=== PATIENT | female | born 1955 | race Two or more races ===

== ENCOUNTER 2023-12-17 17:07 | Inpatient (IN) | payer OTHER, MEDICAID ==
[~2023-12-17] VITALS: Ht 154.9 cm; Wt 72.3 kg
[2023-12-17] MEDS ORDERED: AMIODARONE HCL (50 MG/ ML) 3 ML VIAL IV ONE (17:13)
[2023-12-17] MEDS: AMIODARONE BOLUS KIT 100 ML IV ONE (17:15)
[2023-12-17] MEDS: DOPamine 1600MCG/ML D5W 250 ML IV ONE (17:26)
[2023-12-17] MEDS: dilTIAZem 25 MG/5 ML VIAL IV ONE (17:59)
[2023-12-17 18:02] LABS: Basophils # (auto) 0.1 10 ^3/uL (0-0.2); Eosinophils # (auto) 0.1 10 ^3/uL (0-0.8); Eosinophils % (auto) 1.4 % (0.0-7.0); Hematocrit 29.2 % (36.0-46.0); Hemoglobin 9.2 g/dL (12.2-16.2); White Blood Cell 7.7 10^3/uL (4.4-10.8)
[2023-12-17 18:04] LABS: Basophils % (auto) 0.9 % (0.0-2.0); Lymphocytes # (auto) 1.3 10 ^3/uL (0.4-5.4); Lymphocytes % (auto) 17.1 % (10.0-50.0); Mean Corpuscular Hgb Conc. 31.6 g/dL (32.0-36.0); Mean Corpuscular Volume 82.2 fL (80.0-100.0); Monocytes # (auto) 0.8 10 ^3/uL (0-1.3); Monocytes % (auto) 10.7 % (0.0-12.0); Neutrophils # (auto) 5.4 10 ^3/uL (1.6-8.6); Neutrophils % (auto) 69.9 % (37.0-80.0); Nucleated Red Blood Cells % 0.2 %; Platelet Count (auto) 116 10^3/uL (140-450); Red Blood Cells 3.55 10^6/uL (4.0-5.20)
[2023-12-17 18:23] LABS: Albumin 3.4 g/dL (3.2-4.8); Alkaline Phosphatase 474 U/L (46-116); Anion Gap 12 (5-15); Aspartate Aminotransferase 20 U/L (13-40); BUN/Creatinine Ratio 4.3 (10.0-20.0); Blood Urea Nitrogen 21 mg/dL (9-23); Calcium 7.9 mg/dL (8.7-10.4); Carbon Dioxide 21 mmol/L (20-30); Chloride 99 mmol/L (98-107); Glucose 113 mg/dL (74-106); Potassium 4.5 mmol/L (3.5-5.1); Sodium 132 mmol/L (136-145)
[2023-12-17 18:24] LABS: Bilirubin, Total 2.2 mg/dL (0.2-1.0); Total Protein 7.8 g/dL (5.7-8.2)
[2023-12-17 18:49] LABS: Red Cell Distribution Width 20.3 % (11.8-14.3)
[2023-12-17 18:50] LABS: Alanine Aminotransferase < 9 U/L (7-40)
[2023-12-17] MEDS ORDERED: dilTIAZem 125mg/125ml BAG KIT 125 ML IV ONE (19:15)
[2023-12-17 19:20] VITALS: PULSE 115; RESP 26; O2SAT 93
[2023-12-17 19:22] LABS: Lactic Acid w/Reflex 4.1 mmol/L (0.4-2.0)
[2023-12-17] MEDS: CALCIUM GLUC 1,000mg/50ml-NS 50 ML IV ONE (19:41)
[2023-12-17] MEDS: DOPamine 1600MCG/ML D5W 250 ML IV SCH (19:43)
[2023-12-17] MEDS: PIPERACILLIN-TAZOB 2.25GM 50 ML IV ONE (19:45)
[2023-12-17] MEDS: FUROSEMIDE 20 MG/2 ML VIAL IV ONE (19:45)
[2023-12-17] MEDS: AMIODARONE 450mg/250ml AE 250 ML IV SCH (19:58)
[2023-12-17] MEDS: SODIUM CHLORIDE 0.9% 250 ML IV ONE (19:59)
[2023-12-17] MEDS ORDERED: MORPHINE SULFATE INJ 2 MG/ml SYRG IV PRN (22:15)
[2023-12-17] MEDS ORDERED: DEXTROSE (50%) 50ML SYRG IV PRN (22:15)
[2023-12-17] MEDS ORDERED: NITROGLYCERIN 0.4 MG SL TAB SL PRN (22:15)
[2023-12-17] MEDS ORDERED: ACETAMINOPHEN 325 MG TAB PO PRN (22:15)
[2023-12-17] MEDS ORDERED: ALBUTEROL SULF 2.5 MG/0.5ML(0.5%) NEB SOLN NEB PRN (23:45)
[2023-12-17 23:47] VITALS: BP 102/51; PULSE 107; RESP 14; O2SAT 95
[2023-12-18] MEDS: AMIODARONE 450mg/250ml AE 250 ML IV SCH (01:32)
[2023-12-18 05:26] LABS: Basophils # (auto) 0.1 10 ^3/uL (0-0.2); Basophils % (auto) 0.8 % (0.0-2.0); Eosinophils # (auto) 0.1 10 ^3/uL (0-0.8); Lymphocytes # (auto) 1.6 10 ^3/uL (0.4-5.4); Neutrophils # (auto) 5.9 10 ^3/uL (1.6-8.6); Nucleated Red Blood Cells % 0.1 %; Platelet Count (auto) 117 10^3/uL (140-450)
[2023-12-18 05:28] LABS: Eosinophils % (auto) 0.8 % (0.0-7.0); Hematocrit 28.7 % (36.0-46.0); Hemoglobin 9.4 g/dL (12.2-16.2); Lymphocytes % (auto) 17.8 % (10.0-50.0); Mean Corpuscular Hemoglobin 26.9 pg (28.0-32.0); Mean Corpuscular Hgb Conc. 32.7 g/dL (32.0-36.0); Mean Corpuscular Volume 82.4 fL (80.0-100.0); Monocytes # (auto) 1.1 10 ^3/uL (0-1.3); Monocytes % (auto) 12.6 % (0.0-12.0); Red Blood Cells 3.48 10^6/uL (4.0-5.20); White Blood Cell 8.7 10^3/uL (4.4-10.8)
[2023-12-18 05:35] LABS: Red Cell Distribution Width 20.3 % (11.8-14.3)
[2023-12-18] MEDS: FUROSEMIDE 40 MG TAB PO SCH (06:00)
[2023-12-18] MEDS: InsuLIN REG 1unit/0.01ml Soln (100units/ml) SC SCH (06:46)
[2023-12-18] MEDS: ACCU-CHEK COMFORT CURVE STRIP VI SCH (06:46)
[2023-12-18 06:49] LABS: Alkaline Phosphatase 460 U/L (46-116)
[2023-12-18 06:50] LABS: Anion Gap 16 (5-15); Aspartate Aminotransferase 30 U/L (13-40); BUN/Creatinine Ratio 5.4 (10.0-20.0); Bilirubin, Total 3.5 mg/dL (0.2-1.0); Blood Urea Nitrogen 30 mg/dL (9-23); Calcium 8.2 mg/dL (8.7-10.4); Carbon Dioxide 22 mmol/L (20-30); Chloride 94 mmol/L (98-107); Glucose 82 mg/dL (74-106); Potassium 4.7 mmol/L (3.5-5.1); Sodium 132 mmol/L (136-145); Total Protein 7.9 g/dL (5.7-8.2)
[2023-12-18 06:52] LABS: Alanine Aminotransferase < 9 U/L (7-40); Albumin 3.6 g/dL (3.2-4.8)
[2023-12-18 07:05] VITALS: O2SAT 96
[2023-12-18] MEDS: SEVELAMER 800 MG TAB PO SCH (09:01)
[2023-12-18] MEDS: CALCIUM ACETATE 667 MG CAP PO SCH (09:01)
[2023-12-18] MEDS: ONDANSETRON HCL 4 MG/2 ML VIAL IV PRN (09:18)
[2023-12-18] MEDS: SACUBITRIL-VALSARTAN 24mg/26mg TAB PO SCH (10:00)
[2023-12-18] MEDS: CARVEDILOL 12.5 MG TAB PO SCH (10:00)
[2023-12-18] MEDS: cefTRIAXone 1GM/50ML D5W 50 ML IV SCH (10:32)
[2023-12-18] MEDS: CLOPIDOGREL BISULFATE 75 MG TAB PO SCH (10:33)
[2023-12-18] MEDS ORDERED: ENOXAPARIN SOD 100 MG/1 ML SYRINGE SC SCH ×2 (12:00→22:00)
[2023-12-18 14:18] LABS: Basophils # (auto) 0.1 10 ^3/uL (0-0.2); Eosinophils # (auto) 0.1 10 ^3/uL (0-0.8); Eosinophils % (auto) 0.6 % (0.0-7.0); Hemoglobin 9.2 g/dL (12.2-16.2); Mean Corpuscular Hgb Conc. 32.9 g/dL (32.0-36.0); Red Blood Cells 3.43 10^6/uL (4.0-5.20)
[2023-12-18 14:20] LABS: Basophils % (auto) 0.8 % (0.0-2.0); Lymphocytes # (auto) 1.2 10 ^3/uL (0.4-5.4); Lymphocytes % (auto) 11.8 % (10.0-50.0); Mean Corpuscular Hemoglobin 26.8 pg (28.0-32.0); Mean Corpuscular Volume 81.6 fL (80.0-100.0); Monocytes # (auto) 1.2 10 ^3/uL (0-1.3); Monocytes % (auto) 11.8 % (0.0-12.0); Neutrophils # (auto) 7.4 10 ^3/uL (1.6-8.6); Nucleated Red Blood Cells % 0.3 %; Platelet Count (auto) 117 10^3/uL (140-450); Red Cell Distribution Width 19.9 % (11.8-14.3); White Blood Cell 9.9 10^3/uL (4.4-10.8)
[2023-12-18 14:33] LABS: INR 1.9 (0.9-1.15); Partial Thromboplastin Time 36.3 SEC (24.5-34.5); Prothrombin Time 19.2 sec (9.3-11.8)
[2023-12-18] MEDS: IOHEXOL 350 MG/ML 100ML IJ ONE (14:38)
[2023-12-18] MEDS: HEPARIN DRIP/D5W 100UNITS/ML 250 ML IV SCH (14:39)
[2023-12-18 18:01] VITALS: O2SAT 100
[2023-12-18 19:40] VITALS: RESP 16; O2SAT 96
[2023-12-18 21:52] LABS: INR 1.97 (0.9-1.15); Prothrombin Time 19.9 sec (9.3-11.8)
[2023-12-18] MEDS: AMIODARONE HCL 200 MG TAB PO SCH (22:00)
[2023-12-18 22:23] LABS: Partial Thromboplastin Time 93.9 SEC (24.5-34.5)
[2023-12-18] MEDS: ATORVASTATIN 20 MG TAB PO SCH (22:53)
[2023-12-18] MEDS: EPOETIN ALFA-EPBX 10,000 UNIT/1ML VIAL SC ONE (22:54)
[2023-12-19 07:09] VITALS: O2SAT 99
[2023-12-19 07:16] LABS: INR 1.81 (0.9-1.15); Partial Thromboplastin Time 42.6 SEC (24.5-34.5); Prothrombin Time 18.4 sec (9.3-11.8)
[2023-12-19 08:02] LABS: Chloride 100 mmol/L (98-107); Potassium 4.8 mmol/L (3.5-5.1); Sodium 134 mmol/L (136-145)
[2023-12-19 08:03] VITALS: PULSE 60; RESP 11; O2SAT 97
[2023-12-19 08:03] LABS: Anion Gap 7 (5-15); Calcium 7.9 mg/dL (8.7-10.4); Carbon Dioxide 27 mmol/L (20-30)
[2023-12-19 08:08] LABS: Glucose 88 mg/dL (74-106)
[2023-12-19] MEDS: HEPARIN DRIP/D5W 100UNITS/ML 250 ML IV SCH ×2 (08:30)
[2023-12-19] MEDS: SODIUM CHL 0.9% 1000 ML BAG XX ONE (08:41)
[2023-12-19 10:44] LABS: Basophils # (auto) 0.1 10 ^3/uL (0-0.2); Basophils % (auto) 1.2 % (0.0-2.0); Eosinophils # (auto) 0.2 10 ^3/uL (0-0.8); Lymphocytes # (auto) 1.2 10 ^3/uL (0.4-5.4); Mean Corpuscular Hemoglobin 26.2 pg (28.0-32.0); Nucleated Red Blood Cells % 0.1 %
[2023-12-19 10:46] LABS: Hematocrit 31.1 % (36.0-46.0); Lymphocytes % (auto) 12.8 % (10.0-50.0); Mean Corpuscular Hgb Conc. 32.2 g/dL (32.0-36.0); Mean Corpuscular Volume 81.3 fL (80.0-100.0); Monocytes # (auto) 1.2 10 ^3/uL (0-1.3); Monocytes % (auto) 12.9 % (0.0-12.0); Neutrophils # (auto) 6.8 10 ^3/uL (1.6-8.6); Neutrophils % (auto) 71.1 % (37.0-80.0); Platelet Count (auto) 150 10^3/uL (140-450); Red Blood Cells 3.83 10^6/uL (4.0-5.20); White Blood Cell 9.6 10^3/uL (4.4-10.8)
[2023-12-19 10:57] LABS: Red Cell Distribution Width 20.6 % (11.8-14.3)
[2023-12-19 12:29] LABS: BUN/Creatinine Ratio 5.3 (10.0-20.0); Blood Urea Nitrogen 23 mg/dL (9-23)
[2023-12-19 15:02] LABS: INR 1.77 (0.9-1.15)
[2023-12-19 19:40] VITALS: O2SAT 98
[2023-12-19 21:42] VITALS: PULSE 60; RESP 16; O2SAT 100
[2023-12-19] MEDS: METOPROLOL TARTRATE 25 MG TAB PO SCH (22:00)
[2023-12-19] MEDS: APIXABAN 5 MG TAB PO SCH (22:19)
[2023-12-20] MEDS: MIDODRINE HCL 10 MG TAB PO ONE (04:19)
[2023-12-20] MEDS: NOREPINEPHRINE 8 MG/250ML KIT 250 ML IV SCH (05:13)
[2023-12-20 05:48] LABS: Basophils # (auto) 0.1 10 ^3/uL (0-0.2); Hemoglobin 10.5 g/dL (12.2-16.2); Lymphocytes # (auto) 1.4 10 ^3/uL (0.4-5.4); Neutrophils # (auto) 7.1 10 ^3/uL (1.6-8.6)
[2023-12-20 05:51] LABS: Basophils % (auto) 1.1 % (0.0-2.0); Eosinophils # (auto) 0.2 10 ^3/uL (0-0.8); Eosinophils % (auto) 1.6 % (0.0-7.0); Hematocrit 32.5 % (36.0-46.0); Lymphocytes % (auto) 13.9 % (10.0-50.0); Mean Corpuscular Hemoglobin 26.9 pg (28.0-32.0); Mean Corpuscular Hgb Conc. 32.4 g/dL (32.0-36.0); Monocytes # (auto) 1.3 10 ^3/uL (0-1.3); Monocytes % (auto) 13.2 % (0.0-12.0); Neutrophils % (auto) 70.2 % (37.0-80.0); Nucleated Red Blood Cells % 0.2 %; Platelet Count (auto) 167 10^3/uL (140-450); Red Blood Cells 3.91 10^6/uL (4.0-5.20); Red Cell Distribution Width 20.5 % (11.8-14.3); White Blood Cell 10.1 10^3/uL (4.4-10.8)
[2023-12-20 07:30] VITALS: PULSE 56; RESP 17; O2SAT 99
[2023-12-20] MEDS: MIDODRINE HCL 10 MG TAB PO SCH (08:34)
[2023-12-20] MEDS ORDERED: METOPROLOL TARTRATE 25 MG TAB PO SCH (10:00)
[2023-12-20] MEDS: LISINOPRIL 5 MG TAB PO SCH (11:02)
[2023-12-20] MEDS: EPOETIN ALFA-EPBX 4,000 UNIT/ML VIAL IV ONE (14:27)
[2023-12-20 15:29] VITALS: BP 124/32; PULSE 55; RESP 17; TEMP 97.6; O2SAT 96
[2023-12-20 15:45] VITALS: BP 123/51; PULSE 56; RESP 20; O2SAT 98
== END 2023-12-20 15:50 | disposition home or self-care (01) | DRG 291 ==
LOC: ER 17:07 → EDBD 17:07 → OVERFLOW 22:23
PROVIDERS: ADMIT Nurse Practitioner; ATTEND Internal Medicine
PROC: 5A1D70Z Performance of Urinary Filtration, Intermittent, Less than 6 Hours Per Day (ICD-10-PCS; principal; 2023-12-18)
DX: I13.2 Hypertensive heart and chronic kidney disease with heart failure and with stage 5 chronic kidney disease, or end stage renal disease (principal); I50.43 Acute on chronic combined systolic (congestive) and diastolic (congestive) heart failure; N18.6 End stage renal disease; I47.10 Supraventricular tachycardia, unspecified; E87.1 Hypo-osmolality and hyponatremia; I47.20 Ventricular tachycardia, unspecified; E11.22 Type 2 diabetes mellitus with diabetic chronic kidney disease; D63.1 Anemia in chronic kidney disease; J45.909 Unspecified asthma, uncomplicated; I25.10 Atherosclerotic heart disease of native coronary artery without angina pectoris; I48.0 Paroxysmal atrial fibrillation; Z99.2 Dependence on renal dialysis; Z95.1 Presence of aortocoronary bypass graft; Z82.49 Family history of ischemic heart disease and other diseases of the circulatory system; Z79.899 Other long term (current) drug therapy; Z79.4 Long term (current) use of insulin
CPT/HCPCS: 36415; 71045; 71275; 76604; 78582; 80048; 80053; 82962; 83605; 83735; 83880; 84484; 85025; 85379; 85610; 85730; 87040; 87340; 90935; 93005; 93306; 93970; 99291; G0378; J1815; J2405; J2543

== ENCOUNTER 2024-07-26 06:25 | Emergency (ER) | payer OTHER, MEDICAID ==
[~2024-07-26] VITALS: Ht 157.5 cm; Wt 72.7 kg
[2024-07-26] MEDS ORDERED: AMIODARONE HCL (50 MG/ ML) 3 ML VIAL IV ONE (06:26)
--- NOTE | 2024-07-26 06:35 | ECG ---
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
--- NOTE | 2024-07-26 06:45 | ED.PDOC ---
History of Present Illness HPI Comments 69 y.o female with PMHx of Anemia, HLD, ESRD, MO, CHF, Asthma and ESRD, presents to the ED for a chief complaint of generalized weakness x last night. Patient reports she was unable to get herself up to use the restroom due to increased weakness with spontaneous dizziness and acid reflux. Patient reports having an acid sensation since last night. EMS reports patient's 12 lead EKGs have been reading between 150-170 AFIB with RVR. Patient denies any chest pain, palpitations, nausea, vomiting, fever, chills, leg swelling. Patient gets dialyzed Saturday, Saturday and Saturday, has a Fistula in place to left upper arm. Patient is on Plavix. 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: No Pertinent CELLAR PACKER History Family History Family History: Reviewed,noncontributory to illness Social History Smoker: Non-Smoker Alcohol: Denies ETOH Use Drugs: Denies Drug Use Lives In: Home Constitutional: reports: weakness; denies: chills, diaphoresis, fatigue, fever, malaise, sweats, others EENTM: denies: blurred vision, double vision, ear bleeding, ear discharge, ear drainage, ear pain, ear ringing, eye pain, eye redness, hearing loss, mouth pain, mouth swelling, nasal discharge, nose bleeding, nose congestion, nose pain, photophobia, tearing, throat pain, throat swelling, voice changes, others Respiratory: denies: cough, hemoptysis, orthopnea, SOB at rest, shortness of breath, SOB with excertion, stridor, wheezing, others Cardiovascular: denies: chest pain, dizzy spells, diaphoresis, Dyspnea on exertion, edema, irregular heart beat, left arm pain, lightheadedness, palpitations, PND, syncope, others Gastrointestinal: denies: abdomen distended, abdominal pain, blood streaked bowels, constipated, diarrhea, dysphagia, difficulty swallowing, hematemesis, melena, nausea, poor appetite, poor fluid intake, rectal bleeding, rectal pain, vomiting, others Genitourinary: denies: abnormal vagina bleeding, burning, dyspareunia, dysuria, flank pain, frequency, hematuria, incontinence, pain, , vagina discharge, urgency, others Neurological: denies: dizziness, fainting, headache, left sided numbness, left sided weakness, numbness, paresthesia, pre-existing deficit, right sided numbness, right sided weakness, seizure, speech problems, tingling, tremors, weakness, others Musculoskeletal: denies: back pain, gout, joint pain, joint swelling, muscle pain, muscle stiffness, neck pain, others Integumetry: denies: bruises, change in color, change in hair/nails, dryness, laceration, lesions, lumps, rash, wounds, others Allergic/Immunocompromised: denies: Difficulty Healing, Frequent Infections, Hives, Itching, others Hematologic/Lymphatic: denies: anemia, blood clots, easy bleeding, easy bruising, swollen glands, others Endocrine: denies: excessive hunger, excessive sweating, excessive thirst, excessive urination, flushing, intolerance to cold, intolerance to heat, unexplained weight gain, unexplained weight loss, others Psychiatric: denies: anxiety, bipolar disorder, depression, hopeless, panic disorder, schizophrenia, sleepless, suicidal, others All Other Systems: Reviewed and Negative Physical Exam General Appearance: Moderate Distress HEENT: Normal ENT Inspection, Pharynx Normal, TMs Normal Neck: Full Range of Motion, Non-Tender, Normal, Normal Inspection Respiratory: Chest Non-Tender, Lungs Clear, No Accessory Muscle Use, No Respiratory Distress, Normal Breath Sounds Cardiovascular: Irregular, Tachycardia Breast Exam: Deferred Gastrointestinal: No Organomegaly, Non Tender, No Pulsatile Mass, Normal Bowel Sounds, Soft Genitalia: Deferred Pelvic: Deferred Rectal: Deferred Extremities: No calf tenderness, Normal inspection, Normal range of motion, No pedal edema Musculoskeletal : Apperance: Normal Neurologic: Alert, No Motor Deficits, No Sensory Deficits Cerebellar Function: NOT DONE Reflexes: NOT DONE Skin: Dry, Normal Color, Warm Peripheral Pulses: 3+ Radial (R), 3+ Radial (L) Lymphatic: No Adenopathy Was a procedure done? 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 Indication: Hypotension Room prepared for procedure: Yes Answering Service Agent performed hand hygien: Yes Maximal sterile barrier precau: Mask/Eye shield, Sterile gown Skin Preparation: Chlorhexidine gluconate, Providine iodine Skin preparation completely dr: Yes Insertion site: Right, Femoral Central line catheter type: [id number] dialysis Number of lumens: 3 Intubation Indication: Respiratory Insufficiency Prep: Preoxygenation Pretreated with: Analgesia Intubation Approach: Orotracheal Intubation size: cm (8) EKG EKG : Pulse Rate (adult): 124 Cardiac Rhythm: Junctional Differential Dx Considerations may include: Dehydration, Electrolyte imbalance, AFIB, CHF, Atrial flutter, Hypokalemia, Hyperthyroidism X-Ray, Labs, Meds, VS Vital Signs Date Time Temp Pulse Resp B/P (MAP) Pulse Ox O2 Delivery O2 Flow Rate FiO2 07/26/24 10:43 Ambu-Bag 07/26/24 08:38 118/28 07/26/24 08:35 86/56 07/26/24 08:30 165 27 106/49 (68) 98 07/26/24 08:24 86/56 07/26/24 08:17 121 19 103/73 (83) 99 07/26/24 08:06 132 17 74/23 (40) 97 07/26/24 08:06 74/23 07/26/24 08:00 63/21 07/26/24 07:58 115 25 85/29 (47) 98 07/26/24 07:55 79/21 07/26/24 07:45 110 24 96 Room Air* 0 21 07/26/24 07:18 120 07/26/24 07:15 97.9 112 24 88/22 (44) 95 97.9 07/26/24 06:45 124 07/26/24 06:30 97.6 170 17 177/126 (143) 94 97.6 07/26/24 06:25 124 Lab Test 07/26/24 06:56 Range/Units White Blood Count 4.8 4.4-10.8 10^3/uL Red Blood Count 4.34 4.0-5.20 10^6/uL Hemoglobin 12.0 L 12.2-16.2 g/dL Hematocrit 37.3 36.0-46.0 % Mean Corpuscular Volume 86.1 80.0-100.0 fL Mean Corpuscular Hemoglobin 27.7 L 28.0-32.0 pg Mean Corpuscular Hemoglobin Concent 32.2 32.0-36.0 g/dL Red Cell Distribution Width 18.1 H 11.8-14.3 % Platelet Count 120 L 140-450 10^3/uL Mean Platelet Volume 8.6 6.9-10.8 fL Neutrophils (%) (Auto) 61.5 37.0-80.0 % Lymphocytes (%) (Auto) 24.3 10.0-50.0 % Monocytes (%) (Auto) 12.1 H 0.0-12.0 % Eosinophils (%) (Auto) 1.2 0.0-7.0 % Basophils (%) (Auto) 0.9 0.0-2.0 % Neutrophils # (Auto) 3.0 1.6-8.6 10 ^3/uL Lymphocytes # (Auto) 1.2 0.4-5.4 10 ^3/uL Monocytes # (Auto) 0.6 0-1.3 10 ^3/uL Eosinophils # (Auto) 0.1 0-0.8 10 ^3/uL Basophils # (Auto) 0 0-0.2 10 ^3/uL Nucleated Red Blood Cells 0.2 % Sodium Level 132 L 136-145 mmol/L Potassium Level 4.5 3.5-5.1 mmol/L Chloride Level 94 L 98-107 mmol/L Carbon Dioxide Level 25 20-31 mmol/L Anion Gap 13 5-15 Blood Urea Nitrogen 43 H 9-23 mg/dL Creatinine 6.23 H 0.550-1.02 mg/dL Glomerular Filtration Rate Calc 7 >90 mL/min BUN/Creatinine Ratio 6.9 L 10.0-20.0 Serum Glucose 135 H 74-106 mg/dL Calcium Level 9.0 8.7-10.4 mg/dL Troponin I High Sensitivity 122 *H </=34 ng/L Current Medications Medications (Trade) Dose Ordered Sig/Low Route Start Time Stop Time Status Last Admin Norepinephrine Bitartrate 250 ml @ 3.75 mls/hr Q24H IV 07/26/24 08:00 07/26/24 07:55 Lidocaine HCl (XYLOCAINE 2% SYRINGE (100 MG/ 5mL)) 109.5 mg ONCE ONCE IV 07/26/24 08:30 07/26/24 08:31 DC 07/26/24 08:30 Patient alert. Complaining of generalized weakness. Tachycardia. Blood pressure elevated. History of kidney disease. EKG reviewed does show irregular rhythm AFib versus junctional. Was given labetalol. Started amiodarone. Reviewed history. Explained to the patient. Continue monitoring. Nephrology consultation. Cardiac marker elevated. Kidney function elevated. She went hypotensive. Started Levophed. Central line placed. [facility] approved inpatient admission [id number]. X-Ray, Labs, Meds, VS Comment CHEST RADIOGRAPH Indication: sob Technique: Single frontal view of the chest was obtained COMPARISON: XY CHEST PORTABLE on DOS: 12/17/23 FINDINGS: Lines and Tubes: Median sternotomy Lungs: Congestion Pleura: No effusion. No pneumothorax. Cardiomediastinal contours: Cardiomegaly Bones: Unremarkable IMPRESSION: Pulmonary vascular congestion Time of 1ST Reevaluation: 06:43 Reevaluation 1ST: Unchanged Patient Education/Counseling: Diagnosis, Treatment, Prognosis Family Education/Counseling: No Family Present Departure 1 Departure Time of Disposition: 07:07 Impression: Primary Impression: Atrial fibrillation with RVR Additional Impressions: ESRD (end stage renal disease) on dialysis Hypertensive emergency Disposition: 09 ADMITTED INPATIENT Admit to: Med Surg Condition: Guarded e-Prescriptions No Active Prescriptions or Reported Meds Critical Care Note Critical Care Time?: Yes (90 min-critical care time only) Critical care comment: Rapid heart rate Stability Stability form required: No Heart Score Heart Score: Heart Score Response (Comments) Value History Moderate Suspicious 1 EKG Normal 0 Age >65 2 Risk Factors >3 or Hx ASHD 2 Troponin Normal limit 0 Total 5 I personally scribed for WILLIAM REGAN MD ([email or web address]) on 07/26/24 at 06:44. Electronically submitted by Jessy Thompson ([facility]). I personally scribed for WILLIAM REGAN MD ([email or web address]) on 07/26/24 at 11:06. Electronically submitted by Jessy Thompson ([facility]). WILLIAM REGAN MD Jul 26, 2024 06:44
[2024-07-26 07:15] VITALS: TEMP 97.9
--- NOTE | 2024-07-26 07:20 | ECG ---
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
[2024-07-26 07:35] LABS: Basophils # (auto) 0 10 ^3/uL (0-0.2); Basophils % (auto) 0.9 % (0.0-2.0); Eosinophils # (auto) 0.1 10 ^3/uL (0-0.8); Eosinophils % (auto) 1.2 % (0.0-7.0); Hematocrit 37.3 % (36.0-46.0); Lymphocytes # (auto) 1.2 10 ^3/uL (0.4-5.4); Lymphocytes % (auto) 24.3 % (10.0-50.0); Mean Corpuscular Hemoglobin 27.7 pg (28.0-32.0); Mean Corpuscular Hgb Conc. 32.2 g/dL (32.0-36.0); Mean Corpuscular Volume 86.1 fL (80.0-100.0); Monocytes # (auto) 0.6 10 ^3/uL (0-1.3); Monocytes % (auto) 12.1 % (0.0-12.0); Neutrophils % (auto) 61.5 % (37.0-80.0); Nucleated Red Blood Cells % 0.2 %; Platelet Count (auto) 120 10^3/uL (140-450); Red Blood Cells 4.34 10^6/uL (4.0-5.20); Red Cell Distribution Width 18.1 % (11.8-14.3); White Blood Cell 4.8 10^3/uL (4.4-10.8)
[2024-07-26 07:43] LABS: Potassium 4.5 mmol/L (3.5-5.1)
[2024-07-26 07:44] LABS: Anion Gap 13 (5-15); Carbon Dioxide 25 mmol/L (20-31)
--- NOTE | 2024-07-26 07:44 | DVH ---
CHEST RADIOGRAPH Indication: sob Technique: Single frontal view of the chest was obtained COMPARISON: XY CHEST PORTABLE on DOS: 12/17/23 FINDINGS: Lines and Tubes: Median sternotomy Lungs: Congestion Pleura: No effusion. No pneumothorax. Cardiomediastinal contours: Cardiomegaly Bones: Unremarkable IMPRESSION: Pulmonary vascular congestion
[2024-07-26 07:45] VITALS: PULSE 110; RESP 24; O2SAT 96
[2024-07-26] MEDS: LABETALOL HCL 20 MG/4 ML VL IV ONE (07:48)
[2024-07-26] MEDS: AMIODARONE 360mg/200mL PREMIX 200 ML IV ONE (07:48)
[2024-07-26 07:49] LABS: BUN/Creatinine Ratio 6.9 (10.0-20.0)
[2024-07-26 07:54] LABS: Blood Urea Nitrogen 43 mg/dL (9-23); Chloride 94 mmol/L (98-107); Glucose 135 mg/dL (74-106); Sodium 132 mmol/L (136-145)
[2024-07-26] MEDS: NOREPINEPHRINE 8 MG/250ML KIT 250 ML IV SCH (07:55)
[2024-07-26] MEDS: NOREPINEPHRINE 8 MG/250ML KIT 250 ML IV ONE (08:08)
[2024-07-26 08:30] VITALS: PULSE 165; RESP 27; O2SAT 98
[2024-07-26] MEDS: LIDOCAINE HCL 100 MG/5ML (2%) SYRG INJ IV ONE (08:30)
[2024-07-26 08:38] VITALS: BP 118/28
[2024-07-26] MEDS ORDERED: EPINEPHrine HCL 1 MG/10 ML SYRG ONE ×2 (08:49→08:57)
--- NOTE | 2024-07-26 10:43 | RESUS ---
CODE BLUE ASSESSSMENT History of Events History of Events: Per primary RN, patient noted to have cardiac rhythm change on bedside nut grader that presented as "runs of VTACH". Per primary RN, Dr White was made aware and ordered lidocaine IV. Patient became unresponsive with no palpable pulse shortly after administration of Lidocaine. Initial Information Date: Jul 26, 2024 Time: 08:37 Location of Arrest: ER Arrest Witnessed: Yes CPR started initial time: 08:37 CPR started by whom: Hospital Staff Pre-Hospital Care: ACLS Type of arrest: Cardiac Spontaneous Respirations: No Pulse Present: No Monitoring: Pulse Oximetry, Apnea, Capnography, Telemetry Crash Cart Opened and Supplies: Yes Airway Ventilation Breathing at Onset: Assisted Oxygen Delivery Method: Ambu-Bag Artificial Ventilation: Bag/Endo tube Intubation Size: 7.5 cuffed Intubated by: Dr White Intubation Attempts: 1 Intubated orally: Yes Intubated Nasaly: No Tube secured at: 23 CO2 indicator used: Yes Confirmation: Auscultation, Exhaled CO2 Suctioning (Oral/Tracheal): Yes Circulation Circulation #1: Time: 08:39 Pulse Rate (adult): 132 Circulation Comment: ROSC/ lasted approximately 1 min and patient rhythm changed to asystole Circulation #2: Time: 08:40 Circulation Comment: asystole Circulation #3: Time: 08:42 Circulation Comment: asystole Circulation #4: Time: 08:44 Circulation Comment: asystole Circulation #5: Time: 08:46 Circulation Comment: vfib Circulation #6: Time: 08:48 Circulation Comment: vfib Circulation #7: Time: 08:50 Circulation Comment: vfib Circulation #8: Time: 08:52 Circulation Comment: vfib Circulation #9: Time: 08:54 Circulation Comment: vfib Circulation #10: Time: 08:56 Circulation Comment: vfib Circulation #11: Time: 08:58 Circulation Comment: vfib Defibrillation Defbrillation #1: Time Defibrillator Applied: 08:46 EKG Rhythm: V-Fibrillation Compressions: Manual Defib. Joules: 120 Pulse Present: No Defbrillation #2: Time Defibrillator Applied: 08:48 EKG Rhythm: V-Fibrillation Compressions: Manual Defib. Joules: 150 Pulse Present: No Defbrillation #3: Time Defibrillator Applied: 08:50 EKG Rhythm: V-Fibrillation Compressions: Manual Defib. Joules: 224 Pulse Present: No Defbrillation #4: Time Defibrillator Applied: 08:52 EKG Rhythm: V-Fibrillation Compressions: Manual Defib. Joules: 219 Pulse Present: No Defbrillation #5: Time Defibrillator Applied: 08:54 EKG Rhythm: V-Fibrillation Compressions: Manual Defib. Joules: 220 Defbrillation #6: Time Defibrillator Applied: 08:56 EKG Rhythm: V-Fibrillation Compressions: Manual Defib. Joules: 219 Pulse Present: No Defbrillation #7: Time Defibrillator Applied: 08:58 EKG Rhythm: V-Fibrillation Compressions: Manual Defib. Joules: 224 Pulse Present: No Procedure - IV Procedure - IV : IV Side: Right IV Location: Wrist IV Catheter Type: Peripheral IV IV Placed: In Hospital IV Gauge: [address] prior to code blue Medications & Response Medications and Responses #1: Medication Time: 08:37 ADULT Medications Given ADULT: Epinephrine 1 mg, Calcium Chloride 10 mL Route of Administration: IV Medications and Responses #2: Medication Time: 08:41 ADULT Medications Given ADULT: Epinephrine 1 mg, Sodium Bacarbinate 50 meq Route of Administration: IV Medications and Responses #3: Medication Time: 08:44 ADULT Medications Given ADULT: Epinephrine 1 mg, Sodium Bacarbinate 50 meq Route of Administration: IV Medications and Responses #4: Medication Time: 08:47 ADULT Medications Given ADULT: Epinephrine 1 mg, Amiodarone 300 mg Route of Administration: IV Medications and Responses #5: Medication Time: 08:50 ADULT Medications Given ADULT: Epinephrine 1 mg, Sodium Bacarbinate 50 meq Route of Administration: IV Medications and Responses #6: Medication Time: 08:53 ADULT Medications Given ADULT: Epinephrine 1 mg Route of Administration: IV Medications and Responses #7: Medication Time: 08:56 ADULT Medications Given ADULT: Epinephrine 1 mg Route of Administration: IV Pacing Pacer Pads Applied and Pacing: Yes Procedure - Central Venous Cat Central venous catheter time: 08:50 Central venous catheter site: Rt Femoral Central Venous Catheter Insert: Dr White Nurses Notes [place] Coma Scale Eye Opening: None (1) [place] Coma Scale Verbal: None (1) [place] Coma Scale Motor: None (1) [place] Total: 3 Pupil Reaction: Non Reactive Bedside Blood Glucose: 113 EKG Rhythm: V-Fibrillation, PEA Time Code Ended Time Code Ended: 09:00 Post Arrest Status: Outcome of code: Unsuccessful Patient pronounced by: Dr White Time patient pronounced: 09:00 Family notified: Yes Code Team Present: Dr White RT Berenice Veliz 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 Dr White and bedside medical staff aware. No further interventions attempted. Post Resuscitation Neurologica Pupil Size: 5 Donna Becerril Jul 26, 2024 10:43
== END 2024-07-26 09:12 ==
LOC: ER 06:25 → EDBD 06:25 → ER 09:12
DX: I48.20 Chronic atrial fibrillation, unspecified (principal); I16.1 Hypertensive emergency; K21.9 Gastro-esophageal reflux disease without esophagitis; J45.909 Unspecified asthma, uncomplicated; I13.0 Hypertensive heart and chronic kidney disease with heart failure and stage 1 through stage 4 chronic kidney disease, or unspecified chronic kidney disease; N18.6 End stage renal disease; I50.9 Heart failure, unspecified; E78.5 Hyperlipidemia, unspecified; Z95.1 Presence of aortocoronary bypass graft; Z99.2 Dependence on renal dialysis; Z98.890 Other specified postprocedural states; Z79.02 Long term (current) use of antithrombotics/antiplatelets
CPT/HCPCS: 31500; 36415; 36556; 71045; 80048; 82947; 84484; 85025; 92950; 93005; 99291; 99292; J0171; J0282